=== PATIENT | male | born 1975 | race Caucasian/White ===

== ENCOUNTER 2021-09-29 00:13 | Emergency (ER) | payer MEDICARE ==
[2021-09-29 01:10] LABS: BASOPHIL 1.3 % (0-2); EOSINOPHIL 3.8 % (0-5); HCT 41.6 % (42.0-52.0); HGB 14.8 g/dl (13.2-18.0); LYMPHOCYTE 47.4 % (15-48); MCH 31.4 pg (25.0-31.0); MCHC 35.6 g/dL (32.0-36.0); MCV 88.1 fL (78.0-100.0); MONOCYTE 9.5 % (0-12); MPV 9.4 fL (6.0-9.5); NEUTROPHIL 37.9 % (41-80); NRBC 0; PLT 247 K/uL (150-400); RBC 4.72 M/uL (4.70-6.00); RDW 12.9 % (11.5-14.0); WBC 7.1 K/uL (4.0-10.5)
[2021-09-29 01:29] LABS: ALBUMIN 4.4 g/dL (3.4-5.0); BILIRUBIN - TOTAL 0.8 mg/dL (0.2-1.0); BUN/CREAT RATIO (CALC) 13.4 RATIO; CREATININE 0.82 mg/dL (0.67-1.17); GLOBULIN (CALCULATION) 2.8 g/dL; POTASSIUM 3.4 mmol/L (3.5-5.1); TOTAL PROTEIN 7.2 g/dL (6.4-8.2)
[2021-09-29 02:11] LABS: CORONAVIRUS 2019 SARS-COV-2 NEGATIVE (NEGATIVE); INFLUENZA A NAA NEGATIVE (NEGATIVE)
[2021-09-29 03:44] LABS: BILIRUBIN NEGATIVE (NEGATIVE); BLOOD NEGATIVE Ery/uL (NEGATIVE); CLARITY CLEAR (CLEAR); COLOR YELLOW (YELLOW); GLUCOSE (U) NORMAL (NORMAL); LEUKOCYTES NEGATIVE Leu/uL (NEGATIVE); NITRITE NEGATIVE (NEGATIVE); PROTEIN NEGATIVE (NEGATIVE); SPECIFIC GRAVITY >=1.030 (1.001-1.030); UROBILINOGEN 0.2 mg/dL (0.2-1.0)
[2021-09-29] MEDS ORDERED: FLOMAX0.4 MG PO (03:45)
[2021-09-29] MEDS ORDERED: NORCO 5-325 TA1 EACH PO (03:45)
== END 2021-09-29 05:02 | disposition home or self-care (01) ==
LOC: FER 00:13
PROVIDERS: Internal Medicine
DX: N20.0 Calculus of kidney (principal); R33.9 Retention of urine, unspecified; I10 Essential (primary) hypertension; F17.210 Nicotine dependence, cigarettes, uncomplicated; Z87.442 Personal history of urinary calculi; Z88.8 Allergy status to other drugs, medicaments and biological substances; Z88.5 Allergy status to narcotic agent; Z88.6 Allergy status to analgesic agent; Z20.822 Contact with and (suspected) exposure to COVID-19; Z28.311 Partially vaccinated for COVID-19
CPT/HCPCS: 36415; 80053; 81003; 83690; 84145; 85025; J1170; J2405; J7120; U0002

== ENCOUNTER 2021-10-06 22:38 | Emergency (ER) | payer MEDICARE ==
[~2021-10-06 22:38] MED LIST: FLOMAX0.4 MG PO; NORCO 5-325 TA1 EACH PO
[2021-10-06 23:45] LABS: BUN/CREAT RATIO (CALC) 7.4 RATIO; CREATININE 0.94 mg/dL (0.67-1.17); POTASSIUM 3.5 mmol/L (3.5-5.1)
[2021-10-06 23:46] LABS: BILIRUBIN NEGATIVE (NEGATIVE); BLOOD NEGATIVE Ery/uL (NEGATIVE); CLARITY CLEAR (CLEAR); COLOR YELLOW (YELLOW); GLUCOSE (U) NORMAL (NORMAL); LEUKOCYTES NEGATIVE Leu/uL (NEGATIVE); NITRITE NEGATIVE (NEGATIVE); PROTEIN NEGATIVE (NEGATIVE); UROBILINOGEN 0.2 mg/dL (0.2-1.0)
[2021-10-07] MEDS ORDERED: FLOMAX0.4 MG PO (00:07)
== END 2021-10-07 00:25 | disposition home or self-care (01) ==
LOC: FER 22:38
PROVIDERS: Emergency Medicine
DX: N40.1 Benign prostatic hyperplasia with lower urinary tract symptoms (principal); R33.8 Other retention of urine; R10.84 Generalized abdominal pain; F17.200 Nicotine dependence, unspecified, uncomplicated; Z88.5 Allergy status to narcotic agent
CPT/HCPCS: 36415; 80048; 81003; 99283

== ENCOUNTER 2021-10-19 19:23 | Emergency (ER) | payer MEDICARE ==
[2021-10-19 21:40] LABS: BASOPHIL 1.1 % (0-2); EOSINOPHIL 4.2 % (0-5); HCT 39.9 % (42.0-52.0); HGB 14.2 g/dl (13.2-18.0); LYMPHOCYTE 37.5 % (15-48); MCH 31.4 pg (25.0-31.0); MCHC 35.6 g/dL (32.0-36.0); MCV 88.3 fL (78.0-100.0); MONOCYTE 9.8 % (0-12); MPV 9.5 fL (6.0-9.5); NRBC 0; PLT 219 K/uL (150-400); RBC 4.52 M/uL (4.70-6.00); RDW 12.8 % (11.5-14.0); WBC 7.5 K/uL (4.0-10.5)
[2021-10-19 21:41] LABS: BILIRUBIN NEGATIVE (NEGATIVE); BLOOD NEGATIVE Ery/uL (NEGATIVE); CLARITY CLEAR (CLEAR); COLOR YELLOW (YELLOW); GLUCOSE (U) NORMAL (NORMAL); LEUKOCYTES NEGATIVE Leu/uL (NEGATIVE); NITRITE NEGATIVE (NEGATIVE); PROTEIN NEGATIVE (NEGATIVE); SPECIFIC GRAVITY 1.025 (1.001-1.030); UROBILINOGEN 0.2 mg/dL (0.2-1.0); pH 6.5 (5.0-9.0)
[2021-10-19 21:54] LABS: BUN/CREAT RATIO (CALC) 13.8 RATIO; CREATININE 0.87 mg/dL (0.67-1.17); POTASSIUM 3.7 mmol/L (3.5-5.1)
[2021-10-19] MEDS ORDERED: NORCO 5-325 TA1 EACH PO (22:40)
== END 2021-10-19 22:55 | disposition home or self-care (01) ==
LOC: FER 19:23
PROVIDERS: Nurse Practitioner Family
DX: N20.0 Calculus of kidney (principal); I10 Essential (primary) hypertension; E11.9 Type 2 diabetes mellitus without complications; Z88.6 Allergy status to analgesic agent; Z88.8 Allergy status to other drugs, medicaments and biological substances; Z28.310 Unvaccinated for COVID-19
CPT/HCPCS: 36415; 80048; 81003; 85025; J1885; J7030

== ENCOUNTER 2021-10-26 19:21 | Emergency (ER) | payer MEDICARE ==
[2021-10-26 20:17] LABS: BASOPHIL 1.3 % (0-2); EOSINOPHIL 3.2 % (0-5); HCT 43.8 % (42.0-52.0); HGB 15.3 g/dl (13.2-18.0); LYMPHOCYTE 36.8 % (15-48); MCHC 34.9 g/dL (32.0-36.0); MCV 88.7 fL (78.0-100.0); MONOCYTE 9.5 % (0-12); MPV 9.2 fL (6.0-9.5); NEUTROPHIL 49.1 % (41-80); NRBC 0; PLT 250 K/uL (150-400); RBC 4.94 M/uL (4.70-6.00); RDW 12.8 % (11.5-14.0); WBC 7.5 K/uL (4.0-10.5)
[2021-10-26 20:58] LABS: ALBUMIN 4.5 g/dL (3.4-5.0); BILIRUBIN - TOTAL 0.6 mg/dL (0.2-1.0); BUN/CREAT RATIO (CALC) 15.7 RATIO; CREATININE 0.83 mg/dL (0.67-1.17); GLOBULIN (CALCULATION) 3.2 g/dL; POTASSIUM 3.9 mmol/L (3.5-5.1); TOTAL PROTEIN 7.7 g/dL (6.4-8.2)
[2021-10-26] MEDS ORDERED: FLOMAX0.4 MG PO (22:52)
[2021-10-26 23:08] LABS: BILIRUBIN NEGATIVE (NEGATIVE); BLOOD NEGATIVE Ery/uL (NEGATIVE); CLARITY CLEAR (CLEAR); COLOR YELLOW (YELLOW); GLUCOSE (U) NORMAL (NORMAL); LEUKOCYTES NEGATIVE Leu/uL (NEGATIVE); NITRITE NEGATIVE (NEGATIVE); PROTEIN NEGATIVE (NEGATIVE); UROBILINOGEN 0.2 mg/dL (0.2-1.0); pH 6.5 (5.0-9.0)
== END 2021-10-26 23:50 | disposition home or self-care (01) ==
LOC: FER 19:21
PROVIDERS: Emergency Medicine
DX: R10.32 Left lower quadrant pain (principal); R10.31 Right lower quadrant pain; R10.2 Pelvic and perineal pain; R33.9 Retention of urine, unspecified; I10 Essential (primary) hypertension; F17.200 Nicotine dependence, unspecified, uncomplicated; Z28.310 Unvaccinated for COVID-19; Z88.5 Allergy status to narcotic agent; Z88.8 Allergy status to other drugs, medicaments and biological substances
CPT/HCPCS: 36415; 80053; 81003; 85025; 96374; 96375; J1170; J1885; J2405; J7030